=== PATIENT | male | born 1955 | race African-American/Black ===

== ENCOUNTER 2020-04-29 02:55 | Emergency (ER) | payer SELFPAY ==
[~2020-04-29] VITALS: Ht 172.7 cm; Wt 78.0 kg
[2020-04-29] MEDS ORDERED: DIPHENHYDRAMINE 50MG/ML VIAL IM ONE (03:30)
[2020-04-29] MEDS ORDERED: LORAZEPAM 2MG/ML CPJ IM ONE (03:30)
[2020-04-29] MEDS ORDERED: HALOPERIDOL LACTATE 5MG/ML VIAL IM ONE (04:00)
[2020-04-29 04:49] LABS: HEMATOCRIT. 43.6 % (42.0-52.0); HEMOGLOBIN. 14.2 g/dL (14.0-18.0); MEAN CORPUSCULAR HEMOGLOBIN 31.3 pg (28.0-32.0); MEAN CORPUSCULAR VOLUME 95.9 fL (80.0-94.0); MEAN PLATELET VOLUME 9.5 fl (7.4-10.4); PLATELET 178 x1000/uL (130-400); RED BLOOD CELL COUNT 4.55 mill/uL (4.7-6.1); RED CELL DISTRIBUTION WIDTH 13.8 % (11.6-14.6)
[2020-04-29 04:52] LABS: CHLORIDE 110 mEq/L (98-107)
[2020-04-29 04:56] LABS: ETHANOL BLOOD < 10 mg/dL
[2020-04-29 05:09] LABS: PLATELET ESTIMATE NORMAL
[2020-04-29 05:12] LABS: CREATINE KINASE 3137 IU/L (39-308)
[2020-04-29] MEDS ORDERED: SODIUM CHLORIDE 0.9% 1,000 ML IV ONE ×2 (06:00→06:30)
[2020-04-29 07:12] LABS: CREATINE KINASE 3074 IU/L (39-308)
[2020-04-29 13:25] VITALS: BP 123/78
== END 2020-04-29 13:37 | disposition home or self-care (01) ==
LOC: ER 02:55
DX: R45.1 Restlessness and agitation (principal); M62.82 Rhabdomyolysis; F29 Unspecified psychosis not due to a substance or known physiological condition
CPT/HCPCS: 36415; 70450; 71045; 80048; 80307; 80320; 80329; 82550; 82962; 85025; 93005; 96360; 96372; 99285; J1200; J1630; J2060; J7030; G0480